=== PATIENT | female | born 1990 | race Caucasian/White ===

== ENCOUNTER 2018-06-01 06:05 | Inpatient (IN) | payer BC ==
--- NOTE | 2018-05-31 19:57 | HP ---
General Information - Reason for Visit 27 y/o currently multiparous lady with 4 prior sections, scheduled to undergo a repeat section at term. - General Information Maternal Age: 27 Grav: 7 Para: 4 SAB: 2 IEA: 0 Estimated Due Date: 06/04/18 Determined By: LMP Gestational Age in Weeks/Days: 39 3/7 Maternal Blood Type and Rh: A Positive - Results this Serology/RPR Result: Non-Reactive Rubella Result: Immune HBsAg Result: Negative HIV Result: Negative GBS Culture Result: Negative Past Medical History Delivery History: Hx C/Section, See Records Pertinent Past Medical History: See Records - Migraine headaches, Hx Depression Pertinent Past Surgical History: See Records - sections x 4 Pertinent Family History: See Records - Fhx of DM, HTN, CVD, lung cancer and high cholesterol Review of Systems Constitutional: Comfortable CV Complaint: No Respiratory: Shortness of Breath: No Gastrointestinal: No Nausea/Vomiting, Normal Bowel Movement, Nausea, Vomiting Genitourinary: No Dysuria, No Bleeding, No Leaking Fluid Musculoskeletal: No Complaint Neurological: No Headache Movement: Normal Exam Allergies/Adverse Reactions: Allergies MS Fentanyl [Fentanyl] Adverse Reaction (Intermediate, Verified 07/10/14 19:22) Hives Hives with no itching and tachycardia Temp 98.6 BP 125/80 RR 20 Pulse 72 - Measurements Height: 5 ft 4 in Weight: 155 lb Weight in lbs: [phone] Body Mass Index (BMI): 26.6 Pre- Weight: 129 lb Weight Gained This : 26 lbs and 0 ozs - Exam Breast: Breast Exam Deferred CVA: No CVA Tenderness Extremities: No Edema Heart: Normal Rhythm/Heart Sounds HEENT: No Significant Findings Lungs: Clear Bilaterally Rectal: Rectal Exam Deferred Reflexes: DTR 2+ Thyroid: No Thyromegaly - Abdominal Exam Abdomen Exam: Non-Tender, Fundal Height Consistent with Dates - Ultrasound/Biophysical Profile Ultrasound Status: Not Done Targeted Exam Findings See L&D Outpatient Visit Provider Note for Findings: N/A Cervical Exam: Closed Station: -1 Presenting Part: Vertex Membrane Status: Intact EFM Findings - External Monitor Findings Baseline Heart Rate: 140 Contractions: None Assessment/Plan - Assessment Patient with an IUP at 39 3/7 weeks EGA, Hx of prior x 4. Plan repeat section. - Obstetrical Risk Factors Obstetrical Risk Factors: Previous C/Section in Labor - Plan Plan: IV Hydration, Antibiotic Prophylaxis, C/S Delivery
[~2018-06-01 06:05] MED LIST: Buffered Lidocaine 0.9% SYRIN* 5 ML/SYR SYRINGE INTRADERM ONE; Famotidine IV* 10 MG/ML 2 ML (20 mg) IV ONE; Metoclopramide IV* 5 MG/ML 2 ML VIAL IV SLOW PU ONE; Sodium Citrate/Citric Acid* 15 ML UDC PO ONE
[2018-06-01] MEDS ORDERED: ceFOXitin 2 GM IVPREMIX* 2 GM/50 ML BAG IVPB ONE (07:00)
[2018-06-01] MEDS ORDERED: Morphine PF AMP (0.5MG/ML)* 5 MG/10 ML AMP ONE (07:24)
[2018-06-01] MEDS ORDERED: Bupivacaine-MPF SPINAL* 7.5 MG/ML - 2ML AMP ONE (07:24)
[2018-06-01] MEDS ORDERED: Phenylephrine IV* 40 MCG/ML 10 ML SYRINGE ONE (07:24)
[2018-06-01] MEDS ORDERED: OXYTOCIN* 10 UNITS/ML 1 ML VIAL ONE (07:24)
[2018-06-01] MEDS ORDERED: Sterile Water for Inj* 10 ML ONE (07:24)
[2018-06-01] MEDS ORDERED: EPHEDrine (Pressors)* 50 MG/ML VIAL ONE (07:24)
[2018-06-01] MEDS ORDERED: Ketorolac INJ* 30 MG/ML 1 ML VIAL ONE (07:25)
[2018-06-01] MEDS ORDERED: Naloxone* 0.4 MG/ML 1 ML VIAL IV PRN ×2 (07:53→08:30)
[2018-06-01] MEDS ORDERED: oxyCODONE TAB* 5 MG TAB PO PRN ×2 (07:53→08:30)
[2018-06-01] MEDS ORDERED: Acetaminophen IV 1GM/100ML * 1,000 MG/100 ML VIAL IVPB ONE (07:53)
[2018-06-01] MEDS ORDERED: diPHENhydraMINE IV* 50 MG/ML 1 ml VIAL (BENADRYL) IV PRN ×2 (07:53→08:30)
[2018-06-01] MEDS ORDERED: Ondansetron INJ* 2 MG/ML VIAL IV PRN ×2 (07:53→08:30)
[2018-06-01] MEDS ORDERED: HYDROmorphone INJ* 0.5 MG/0.5 ML SYRINGE IV PRN (07:53)
[2018-06-01] MEDS ORDERED: Scopolamine 1.5 mg* PATCH TRANSDERM PRN (08:30)
[2018-06-01] MEDS ORDERED: oxyCODONE/Acetamin 5/325 MG* TAB PO PRN (08:30)
[2018-06-01] MEDS ORDERED: Acetaminophen TAB* 325 MG PO PRN (08:30)
[2018-06-01] MEDS ORDERED: Dibucaine 1% 28.35 GM TUBE PR PRN (09:40)
[2018-06-01] MEDS ORDERED: Glycerin ADULT SUPP PR PRN (09:40)
[2018-06-01] MEDS ORDERED: Zolpidem TAB* 5 MG PO PRN (09:40)
[2018-06-01] MEDS ORDERED: Witch Hazel PAD* JAR TOPICAL PRN (09:40)
[2018-06-01] MEDS: Simethicone TAB* 80 MG TAB.CHEW PO SCH ×3 (12:58→22:01)
[2018-06-01] MEDS ORDERED: Ondansetron INJ* 2 MG/ML VIAL IV ONE (14:29)
[2018-06-01] MEDS: Ketorolac INJ* 30 MG/ML 1 ML VIAL IV PRN ×2 (15:06→22:00)
[2018-06-01] MEDS: Docusate CAP* 100 MG PO SCH ×2 (15:13→22:01)
[2018-06-02] MEDS: Acetaminophen TAB* 325 MG PO PRN ×2 (03:37→09:35)
[2018-06-02] MEDS: Ketorolac INJ* 30 MG/ML 1 ML VIAL IV PRN (06:42)
[2018-06-02 06:52] LABS: ABS Basophils 0.1 10^3/ul (0-0.2); ABS Eosinophils 0 10^3/ul (0-0.6); ABS Lymphocytes 1.2 10^3/ul (1.0-4.8); ABS Monocytes 0.5 10^3/ul (0-0.8); ABS Neutrophils 6.8 10^3/ul (1.5-7.7); ABS Nucleated RBC 0 10^3/ul; Eosinophil % 0.2 % (0-6); Hematocrit 24 % (35-47); Hemoglobin 8.4 g/dl (12.0-16.0); Lymphocyte % 14.1 % (25-47); Mean Corpuscular HGB Conc 34 g/dl (31-36); Mean Corpuscular Hemoglobin 27 pg (27-31); Mean Corpuscular Volume 80 fL (80-97); Mean Platelet Volume 10.6 um3 (7.4-10.4); Nucleated Red Blood Cells % 0; Platelet Count 128 10^3/ul (150-450); Red Blood Count 3.06 10^6/ul (4.00-5.40); Red Cell Distribution Width 16 % (10.5-15); White Blood Count 8.6 10^3/ul (3.5-10.8)
[2018-06-02] MEDS: Simethicone TAB* 80 MG TAB.CHEW PO SCH ×4 (09:34→21:23)
[2018-06-02] MEDS: Ferrous Gluconate TAB* 324 MG TAB PO SCH ×2 (09:34→21:23)
[2018-06-02] MEDS: Docusate CAP* 100 MG PO SCH ×3 (09:34→21:23)
[2018-06-02] MEDS: Ibuprofen TAB* 600 MG PO PRN ×2 (13:23→19:52)
[2018-06-02] MEDS: oxyCODONE/Acetamin 5/325 MG* TAB PO PRN ×3 (13:27→21:23)
[2018-06-03] MEDS: oxyCODONE/Acetamin 5/325 MG* TAB PO PRN ×3 (01:23→18:43)
[2018-06-03] MEDS: Ibuprofen TAB* 600 MG PO PRN ×3 (04:00→17:44)
[2018-06-03 08:30] VITALS: BP 119/57
[2018-06-03] MEDS: Docusate CAP* 100 MG PO SCH ×3 (09:31→20:21)
[2018-06-03] MEDS: Simethicone TAB* 80 MG TAB.CHEW PO SCH ×4 (09:31→22:23)
[2018-06-03] MEDS: Ferrous Gluconate TAB* 324 MG TAB PO SCH ×2 (09:32→20:21)
[2018-06-04] MEDS: oxyCODONE/Acetamin 5/325 MG* TAB PO PRN ×2 (00:26→12:46)
[2018-06-04] MEDS: Ibuprofen TAB* 600 MG PO PRN ×2 (00:27→06:35)
[2018-06-04] MEDS ORDERED: Scopolamine PATCH Remove* 1 NOTE MISC PATCH OFF PRN (08:38)
[2018-06-04] MEDS: Docusate CAP* 100 MG PO SCH (09:24)
[2018-06-04] MEDS: Simethicone TAB* 80 MG TAB.CHEW PO SCH (09:24)
[2018-06-04] MEDS ORDERED: Ferrous Sulfate TAB* 325 MG ONE (09:27)
[2018-06-04] MEDS: Ferrous Gluconate TAB* 324 MG TAB PO SCH (09:27)
--- NOTE | 2018-06-05 03:55 | OP ---
DATE OF OPERATION: 06/01/18 - ROOM #117 DATE OF : 89 SURGEON: Felipe Casillas MD TELEGRAPH PRINTER MECHANIC: Dr. Rizo. ANESTHESIA: Spinal. PRE-OP DIAGNOSIS: Intrauterine at 39 weeks with 4 prior sections. POST-OP DIAGNOSIS: Intrauterine at 39 weeks with 4 prior sections. OPERATIVE PROCEDURE: Repeat low-transverse section. ESTIMATED BLOOD LOSS: 600 cc. SPECIMENS SENT TO PATHOLOGY: Cord blood. FLUIDS: She received 1700 cc of IV crystalloid fluid. URINE OUTPUT: 200 cc of clear urine. FINDINGS: Delivery of a male weighing 7 pounds 15 ounces with Apgars of 9 and 9. The uterus, adnexa, and bowel and bladder were within normal limits. There were dense adhesions from the anterior abdominal wall to the uterus. DESCRIPTION OF PROCEDURE: The patient was taken to the operating room where she was identified. She was placed on the operating room table where a spinal anesthesia was obtained without difficulty. She was then placed in a supine position with a leftward tilt, prepped and draped in the normal sterile fashion. A Pfannenstiel skin incision was then made with a knife and carried through to the underlying layer of fascia. The fascia was nicked in the midline , extended laterally with curved Miranda scissors. The fascia was then grasped superiorly and inferiorly with Cesar clamps and dissected off sharply from the rectus muscle. The rectus muscle was in the midline sharply. A window in the uppermost aspect of the rectus muscle was made in the midline so as to identify the peritoneum. The peritoneum was grasped, entered sharply with Metzenbaum scissors, and then we proceeded to separate the muscle sharply with dissection. There were two dense adhesions from the anterior abdominal wall to the uterus. These adhesions were clamped with Cristin clamp, transected and suture ligated with 3-0 Polysorb sutures and were able to free up the uterus from the anterior abdomen. A bladder flap was created using Metzenbaum scissors over which the bladder blade was then reinserted. A low transverse uterine incision was made with a knife, extended laterally with bandage scissors. Amniotic sac was ruptured. There was an anterior placenta. The hand was introduced through the placenta. The 's head was then grasped and delivered atraumatically. The rest of the infant's body was then delivered. The cord was clamped and cut and the was handed off to the awaiting nurses' association executive director. Cord bloods were obtained, the placenta was removed manually. The uterus was then exteriorized, cleared of all clot and debris using moist laparotomy sponges. The uterine incision was then closed using 0- Polysorb suture in a running locked fashion and a second imbricating layer of 0 Polysorb suture with good hemostasis noted. The uterus was then inserted into the patient's abdomen. The gutters were then cleared of all clot and debris using moist laparotomy sponges. A sheet of Interceed was placed over the anterior aspect of the uterus covering the incision and the adhesions that were lying near it to prevent future adhesions. At this point all the sponges were removed from the patient's abdomen. The peritoneum was then closed using 3-0 Polysorb suture in a running fashion. The fascia was closed using 0-Polysorb suture in a running fashion and the skin was closed with 4-0 Monocryl subcuticular stitch. The patient tolerated the procedure well. Sponge, lap, and needle counts were correct x2. She was then transferred to the recovery room area in stable condition. [id number]/[facility] #: [id number] SHAUNA
== END 2018-06-04 12:30 | disposition home or self-care (01) | DRG 540 ==
LOC: MCHOB 06:05
PROVIDERS: ADMIT Obstetrics & Gynecology; ATTEND Obstetrics & Gynecology
PROC: 4A1HX4Z Monitoring of Products of Conception, Cardiac Electrical Activity, External Approach (ICD-10-PCS; 2018-06-01)
PROC: 10D00Z1 Extraction of Products of Conception, Low, Open Approach (ICD-10-PCS; principal; 2018-06-01 07:45)
DX: O34.211 Maternal care for low transverse scar from previous cesarean delivery (principal); Z3A.39 39 weeks gestation of pregnancy; Z37.0 Single live birth; Z82.49 Family history of ischemic heart disease and other diseases of the circulatory system; Z83.3 Family history of diabetes mellitus; Z83.49 Family history of other endocrine, nutritional and metabolic diseases; Z88.8 Allergy status to other drugs, medicaments and biological substances; Z87.442 Personal history of urinary calculi; O90.81 Anemia of the puerperium
CPT/HCPCS: 36415; 85025; A9270-GY; J0694; J1885; J2405; J2590; J2765

== ENCOUNTER 2018-06-18 12:07 | Emergency (ER) | payer BC ==
[2018-06-18] MEDS ORDERED: NS 0.9% 1000 ML* 1,000 ML IV ONE (12:23)
[2018-06-18 12:44] LABS: ABS Basophils 0.1 10^3/ul (0-0.2); ABS Eosinophils 0.1 10^3/ul (0-0.6); ABS Lymphocytes 1.8 10^3/ul (1.0-4.8); ABS Monocytes 0.3 10^3/ul (0-0.8); ABS Neutrophils 5.2 10^3/ul (1.5-7.7); ABS Nucleated RBC 0 10^3/ul; Eosinophil % 1.8 % (0-6); Hematocrit 33 % (35-47); Mean Corpuscular HGB Conc 33 g/dl (31-36); Mean Corpuscular Hemoglobin 26 pg (27-31); Mean Corpuscular Volume 79 fL (80-97); Mean Platelet Volume 8.1 um3 (7.4-10.4); Nucleated Red Blood Cells % 0; Platelet Count 353 10^3/ul (150-450); Red Blood Count 4.17 10^6/ul (4.00-5.40); Red Cell Distribution Width 16 % (10.5-15); White Blood Count 7.5 10^3/ul (3.5-10.8)
[2018-06-18 13:01] LABS: EGFR Non-African American 78.1 (>60)
[2018-06-18] MEDS ORDERED: Fluconazole 150 MG (NF) 150 MG TAB PO ONE (13:13)
[2018-06-18] MEDS ORDERED: Fluconazole 100 MG TAB* TAB PO ONE (14:00)
[2018-06-18 14:03] VITALS: BP 121/76
--- NOTE | 2018-06-18 18:33 | ED ---
Abdominal Pain/Female - HPI Summary HPI Summary: Patient is a 27-year-old female who presents emergency department for a possible endometritis. Patient had a about 2 weeks ago. She was seen by Dr. Casillas today for pelvic pain and incisional redness and drainage. Dr. Ferguson concerned for endometritis and would like pt. evaluated in the ER. He has already discussed case with oncall OB, Dr. Damian, and she is to see pt. in the ER. Pt. denies fever, chills, N/V. She has no significant pats - History of Current Complaint Chief Complaint: EDOBProblems Stated Complaint: POSSIBLE INFECTION Time Seen by Provider: 06/18/18 12:23 Hx Obtained From: Patient Pain Intensity: 2 Pain Scale Used: 0-10 Numeric Allergies/Adverse Reactions: Allergies Allergy/AdvReac Type Severity Reaction Status Date / Time fentanyl Allergy Severe Tachycardia Verified 06/18/18 12:18 PMH/Surg Hx/FS Hx/Imm Hx Previously Healthy: Yes Cardiovascular History: Reports: Hx Hypertension - being evaluated for PIH History: Reports: Hx Kidney Infection - IN THE PAST, Other Problems/ Disorders - hx Right hydronephrosis with stent Denies: Hx Kidney Stones Sensory History: Denies: Hx Contacts or Glasses, Hx Hearing Aid Opthamlomology History: Denies: Hx Contacts or Glasses Psychiatric History: Reports: Hx Depression - Surgical History Surgery Procedure, Year, and Place: C- section x2 ureteral stent 08/26 Hx Anesthesia Reactions: No - hypothermic reaction, slight rash with spinal Infectious Disease History: No Infectious Disease History: Denies: Traveled Outside the [place] in Last 30 Days - Family History Known Family History: Positive: Other - noncontributory - Social History Occupation: Unemployed Lives: With Family Alcohol Use: None Substance Use Type: Reports: None Smoking Status (MU): Never Smoked Tobacco Have You Smoked in the Last Year: No Review of Systems Constitutional: Negative Positive: Abdominal Pain. Negative: Vomiting, Diarrhea, Nausea All Other Systems Reviewed And Are Negative: Yes Physical Exam Triage Information Reviewed: Yes Vital Signs On Initial Exam: Initial Vitals Temp Pulse Resp BP Pulse Ox 97.4 F 68 18 124/88 100 06/18/18 12:14 06/18/18 12:14 06/18/18 12:14 06/18/18 12:14 06/18/18 12:14 Vital Signs Reviewed: Yes Appearance: Positive: Well-Appearing - Patient lying in bed in no acute distress. present. Skin: Positive: Warm, Dry Head/Face: Positive: Normal Head/Face Inspection Respiratory/Lung Sounds: Positive: Breath Sounds Present Cardiovascular: Positive: Normal, RRR Abdomen Description: Positive: Other: - Abdomen is soft with pain in palpation to the lower abdomen. Incision noted with dressing. Mild surrounding erythema. Neurological: Positive: Normal, CN Intact II-III Psychiatric: Positive: Affect/Mood Appropriate Diagnostics - Vital Signs Vital Signs Temp Pulse Resp BP Pulse Ox 06/18/18 14:01 97.1 F 53 16 121/76 99 06/18/18 12:14 97.4 F 68 18 124/88 100 - Laboratory Lab Results: Lab Results 06/18/18 06/18/18 06/18/18 Range/Units 12:33 12:33 12:33 WBC 7.5 (3.5-10.8) 10^3/ul RBC 4.17 (4.00-5.40) 10^6/ul Hgb 11.0 L (12.0-16.0) g/dl Hct 33 L (35-47) % MCV 79 L (80-97) fL MCH 26 L (27-31) pg MCHC 33 (31-36) g/dl RDW 16 H (10.5-15) % Plt Count 353 (150-450) 10^3/ul MPV 8.1 (7.4-10.4) um3 Neut % (Auto) 69.0 (38-83) % Lymph % (Auto) 24.0 L (25-47) % Carroll % (Auto) 4.1 (0-7) % Eos % (Auto) 1.8 (0-6) % Baso % (Auto) 1.1 (0-2) % Absolute Neuts (auto) 5.2 (1.5-7.7) 10^3/ul Absolute Lymphs (auto) 1.8 (1.0-4.8) 10^3/ul Absolute Monos (auto) 0.3 (0-0.8) 10^3/ul Absolute Eos (auto) 0.1 (0-0.6) 10^3/ul Absolute Basos (auto) 0.1 (0-0.2) 10^3/ul Absolute Nucleated RBC 0 10^3/ul Nucleated RBC % 0 Sodium 137 (135-145) mmol/L Potassium 4.0 (3.5-5.0) mmol/L Chloride 105 (101-111) mmol/L Carbon Dioxide 25 (22-32) mmol/L Anion Gap 7 (2-11) mmol/L BUN 19 (6-24) mg/dL Creatinine 0.87 (0.51-0.95) mg/dL Est GFR ( Amer) 94.5 (>60) Est GFR (Non-Af Amer) 78.1 (>60) BUN/Creatinine Ratio 21.8 H (8-20) Glucose 90 (70-100) mg/dL Lactic Acid 0.5 (0.5-2.0) mmol/L Calcium 9.3 (8.6-10.3) mg/dL Total Bilirubin 0.40 (0.2-1.0) mg/dL AST 16 (13-39) U/L ALT 12 (7-52) U/L Alkaline Phosphatase 115 H (34-104) U/L Total Protein 7.2 (6.4-8.9) g/dL Albumin 3.8 (3.2-5.2) g/dL Globulin 3.4 (2-4) g/dL Albumin/Globulin Ratio 1.1 (1-3) Result Diagrams: 06/18/18 12:33 06/18/18 12:33 Lab Statement: Any lab studies that have been ordered have been reviewed, and results considered in the medical decision making process. Abdominal Pain Fem Course/Dx - Course Course Of Treatment: Pt. presenting for evaluation of possible endometritis. She is afebrile with stable vital signs. Blood work was obtained. CBC shows a normal white blood cell count. Labs are otherwise unremarkable. OB was consulted, Dr. Damian, who examined pt. in the ED. She does not feel pt. clinically has endometritis. She feels there is candidiasis infection surrounding wound. She would like patient treated with a dose of Diflucan and topical clotrimazole. Patient has a follow-up plan with her OB next week. We' ll discharge home stable. - Diagnoses Provider Diagnoses: Tinea Discharge - Sign-Out/Discharge Documenting (check all that apply): Patient Departure - Discharge Plan Condition: Good Disposition: HOME Prescriptions: Clotrimazole 1% CREAM* [Clotrimazole 1%*] 1 applic TOPICAL BID #60 tube Patient Education Materials: Skin Yeast Infection (ED) Referrals: Felipe Casillas MD [Medical Doctor] - No Primary Care Phys,NOPCP [Primary Care Provider] - Additional Instructions: Follow up with Dr. Casillas's office as scheduled Use cream as directed Return to ER if symptoms change or worsen - Billing Disposition and Condition Condition: GOOD Disposition: Home
== END 2018-06-18 14:01 | disposition home or self-care (01) ==
LOC: ED 12:07
DX: O90.89 Other complications of the puerperium, not elsewhere classified (principal); B35.9 Dermatophytosis, unspecified; Z88.8 Allergy status to other drugs, medicaments and biological substances
CPT/HCPCS: 36415; 80053; 83605; 85025; 87040; 99282; A9270-GY

== ENCOUNTER 2019-08-11 11:25 | Emergency (ER) | payer BC ==
[2019-08-11 11:45] VITALS: BP 124/74
--- NOTE | 2019-08-11 12:25 | UC ---
Hand/Wrist HPI - HPI Summary HPI Summary: 29 yo female presents with RIGHT wrist/thumb pain. She tells me that 1 week ago she tripped and fell with her hands outstretched. She landed on her right wrist awkwardly and her right thumb was bent backwards. Since that time she has been having intermittent popping in her wrist with movement. Today she heard/felt two pops in her wrist and had significantly increased pain that has persisted since that time. She has been taking tylenol/ibuprofen with little relief. Denies numbness or tingling. She is right handed. - History Of Current Complaint Chief Complaint: UCGeneralIllness Stated Complaint: WRIST INJURY Time Seen by Provider: 08/11/19 12:14 Hx Obtained From: Patient Hx Last Menstrual Period: 05/17/19 Onset/Duration: Gradual Onset Severity Initially: Moderate Severity Currently: Moderate Pain Intensity: 6 Pain Scale Used: 0-10 Numeric - Allergies/Home Medications Allergies/Adverse Reactions: Allergies Allergy/AdvReac Type Severity Reaction Status Date / Time fentanyl Allergy Severe Tachycardia Verified 08/11/19 11:45 PMH/Surg Hx/FS Hx/Imm Hx - Additional Past Medical History Additional PMH: None - Surgical History Surgical History: Yes Surgery Procedure, Year, and Place: C- section x2 ureteral stent 08/26 - Family History Known Family History: Positive: Other - noncontributory - Social History Lives: With Family Alcohol Use: None Substance Use Type: None Smoking Status (MU): Never Smoked Tobacco Have You Smoked in the Last Year: No - Immunization History Most Recent Influenza Vaccination: 11/23/17 Most Recent Tetanus Shot: unknown Most Recent Pneumonia Vaccination: never Review of Systems All Other Systems Reviewed And Are Negative: No Constitutional: Positive: Negative Skin: Positive: Negative Respiratory: Positive: Negative Cardiovascular: Positive: Negative Musculoskeletal: Positive: Other: - Right wrist pain Neurological: Positive: Negative Psychological: Positive: Negative Physical Exam - Summary Physical Exam Summary: GENERAL: NAD. WDWN. No pain distress. SKIN: No rashes, sores, lesions, or open wounds. CHEST: No accessory muscle use. Breathing comfortably and in no distress. CV: Pulses intact radial and ulnar. Cap refill <2seconds MSK: RIGHT WRIST: TTP about base of thumb. Limited ROM due to pain. Slight snuffbox tenderness. Unable to recycling worker. NEURO: Alert. Sensations intact hand and all fingers. PSYCH: Age appropriate behavior. Triage Information Reviewed: Yes Vital Signs: Initial Vital Signs Temp 97.3 F 08/11/19 11:41 Pulse 78 08/11/19 11:41 Resp 16 08/11/19 11:41 BP 124/74 08/11/19 11:41 Pulse Ox 100 08/11/19 11:41 Vital Signs Reviewed: Yes Diagnostics - Radiology Wrist Radiology Interpretation Completed By: Radiologist Summary of Radiographic Findings: IMPRESSION: NO ACUTE OSSEOUS INJURY. IF SYMPTOMS PERSIST, RECOMMEND REPEAT IMAGING. Hand/Wrist Course/Dx - Course Course Of Treatment: XR negative. Given exam and continued/worsening symptoms there could be an underlying tendon injury or scaphoid injury. She was placed in a thumb spica brace and advised to f/u with Orthopedics next week for further eval. - Differential Dx/Diagnosis Provider Diagnosis: Thumb sprain Discharge ED - Sign-Out/Discharge Documenting (check all that apply): Patient Departure All imaging exams completed and their final reports reviewed: Yes - Discharge Plan Condition: Stable Disposition: HOME Patient Education Materials: Skier's Thumb (ED), Wrist Sprain (ED) Referrals: No Primary Care Phys,NOPCP [Primary Care Provider] - Yemi De León MD [Medical Doctor] - 5 Days Additional Instructions: If you develop a fever, shortness of breath, chest pain, new or worsening symptoms - please call your PCP or go to the ED immediately. 1) Rest, Ice, and elevate your wrist to decrease pain 2) Use the thumb brace as much as possible 3) Given your worsening symptoms - I recommend that you follow up with Orthopedics next week. Please call the number below to schedule an appointment for follow up - Billing Disposition and Condition Condition: STABLE Disposition: Home
== END 2019-08-11 12:33 | disposition home or self-care (01) ==
LOC: UCEAST 11:25
DX: S63.601A Unspecified sprain of right thumb, initial encounter (principal); W18.30XA Fall on same level, unspecified, initial encounter; Y92.9 Unspecified place or not applicable
CPT/HCPCS: 99211; G0463